=== PATIENT | female | born 1975 | race Two or more races ===

== ENCOUNTER → 2018-09-12 | Outpatient (CLI) | payer OTHER | END | disposition home or self-care (01) | LOC: MAMO-SONO 08:15 | DX: Z12.31 Encounter for screening mammogram for malignant neoplasm of breast (principal); N60.09 Solitary cyst of unspecified breast ==

== ENCOUNTER 2019-01-05 11:05 | Emergency (ER) | payer OTHER ==
[~2019-01-05] VITALS: Ht 177.8 cm; Wt 61.2 kg
== END 2019-01-05 19:53 ==
LOC: ER 11:05
DX: B34.8 Other viral infections of unspecified site (principal); D72.818 Other decreased white blood cell count; R50.9 Fever, unspecified; R07.0 Pain in throat

== ENCOUNTER 2020-01-01 08:59 | Outpatient (CLI) | payer OTHER | END 2020-01-01 09:30 | disposition home or self-care (01) | LOC: MAMO-SONO 08:59 | PROVIDERS: ATTEND Obstetrics & Gynecology | DX: Z12.31 Encounter for screening mammogram for malignant neoplasm of breast (principal); R10.84 Generalized abdominal pain; R92.1 Mammographic calcification found on diagnostic imaging of breast; N60.11 Diffuse cystic mastopathy of right breast; N60.12 Diffuse cystic mastopathy of left breast ==

== ENCOUNTER 2021-01-06 08:46 | Outpatient (CLI) | payer OTHER | END 2021-01-06 09:06 | disposition home or self-care (01) | LOC: MAMO-SONO 08:46 | PROVIDERS: ATTEND Obstetrics & Gynecology | DX: N60.11 Diffuse cystic mastopathy of right breast (principal); N60.12 Diffuse cystic mastopathy of left breast; Z12.31 Encounter for screening mammogram for malignant neoplasm of breast ==

== ENCOUNTER 2021-01-21 08:10 | Outpatient (CLI) | payer OTHER | END 2021-01-21 08:17 | disposition home or self-care (01) | LOC: SONOGRAMA 08:10 → MAMO-SONO 08:15 → SONOGRAMA 08:17 | PROVIDERS: ATTEND Obstetrics & Gynecology | DX: E04.1 Nontoxic single thyroid nodule (principal) ==

== ENCOUNTER 2022-01-03 08:11 | Outpatient (CLI) | payer OTHER | END 2022-01-03 08:13 | disposition home or self-care (01) | LOC: MAMO-SONO 08:11 | PROVIDERS: ATTEND Obstetrics & Gynecology | DX: N63.12 Unspecified lump in the right breast, upper inner quadrant (principal); N63.21 Unspecified lump in the left breast, upper outer quadrant; Z12.31 Encounter for screening mammogram for malignant neoplasm of breast ==

== ENCOUNTER 2023-02-03 08:24 | Outpatient (CLI) | payer OTHER | END 2023-02-03 08:40 | disposition home or self-care (01) | LOC: MAMO-SONO 08:24 | PROVIDERS: ATTEND Obstetrics & Gynecology | DX: N63.12 Unspecified lump in the right breast, upper inner quadrant (principal); N63.21 Unspecified lump in the left breast, upper outer quadrant ==

== ENCOUNTER 2024-02-05 08:45 | Outpatient (CLI) | payer OTHER | END 2024-02-05 08:56 | disposition home or self-care (01) | LOC: MAMO-SONO 08:45 | PROVIDERS: ATTEND Obstetrics & Gynecology | DX: N63.21 Unspecified lump in the left breast, upper outer quadrant (principal); N63.12 Unspecified lump in the right breast, upper inner quadrant ==

== ENCOUNTER 2024-06-12 12:57 | Outpatient (CLI) | payer OTHER | END 2024-06-12 13:05 | disposition home or self-care (01) | LOC: RAD 12:57 | DX: M16.11 Unilateral primary osteoarthritis, right hip (principal) ==

== ENCOUNTER 2025-02-05 11:06 | Outpatient (CLI) | payer OTHER | END 2025-02-05 11:08 | disposition home or self-care (01) | LOC: MAMO-SONO 11:06 | PROVIDERS: ATTEND Obstetrics & Gynecology | DX: N63.21 Unspecified lump in the left breast, upper outer quadrant (principal); N63.12 Unspecified lump in the right breast, upper inner quadrant ==